=== PATIENT | female | born 1985 | race Caucasian/White ===

== ENCOUNTER → 2017-06-27 | Outpatient (CLI) | payer SELFPAY ==
--- NOTE | 2017-06-27 14:28 | RADIOLOGY REPORT (SQ) ---
EXAM DESCRIPTION: CHEST PA/LATERAL COMPLETED DATE/TIME: 06/27/2017 2:14 pm REASON FOR STUDY: CHEST PAIN, UNSPECIFIED COMPARISON: 11/05/2009 EXAM PARAMETERS: NUMBER OF VIEWS: two views TECHNIQUE: Digital Frontal and Lateral radiographic views of the chest acquired. RADIATION DOSE: NA LIMITATIONS: none FINDINGS: LUNGS AND PLEURA: No opacities, masses or pneumothorax. No pleural effusion. MEDIASTINUM AND HILAR STRUCTURES: No masses or contour abnormalities. HEART AND VASCULAR STRUCTURES: Heart normal size. No evidence for failure. BONES: No acute findings. HARDWARE: None in the chest. OTHER: No other significant finding. IMPRESSION: NO SIGNIFICANT RADIOGRAPHIC FINDING IN THE CHEST. TECHNICAL DOCUMENTATION: JOB ID: [id number] [employer]- All Rights Reserved Reading location - IP/workstation name: [email or web address]
[2017-06-27 15:08] LABS: ABSOLUTE EOSINOPHILS # (AUTO) 0.2 10^3/uL (0.0-0.6); ABSOLUTE LYMPHOCYTES (AUTO) 1.4 10^3/uL (0.5-4.7); ABSOLUTE MONOCYTES (AUTO) 0.4 10^3/uL (0.1-1.4); BASOPHILS % (AUTO) 0.5 % (0-2); HEMATOCRIT 36.5 % (36.0-47.0); HEMOGLOBIN 12.3 g/dL (12.0-15.5); LYMPHOCYTES % (AUTO) 36.3 % (13-45); MEAN CORPUSCULAR HEMOGLOBIN 30.8 pg (27.0-33.4); MEAN CORPUSCULAR HGB CONC 33.7 g/dL (32.0-36.0); MEAN CORPUSCULAR VOLUME 91 fl (80-97); MONOCYTES % (AUTO) 9.3 % (3-13); PLATELET COUNT 133 10^3/uL (150-450); RED BLOOD COUNT 3.99 10^6/uL (3.72-5.28); RED CELL DISTRIBUTION WIDTH 13.5 % (11.5-14.0); SEGMENTED NEUTROPHILS % (AUTO) 48.9 % (42-78); TOTAL CELLS COUNTED % (AUTO) 100 %
[2017-06-27 15:33] LABS: ALANINE AMINOTRANSFERASE 30 U/L (9-52); ALKALINE PHOSPHATASE 46 U/L (38-126); ANION GAP 5 (5-19); ASPARTATE AMINO TRANSFERASE 30 U/L (14-36); BILIRUBIN,TOTAL 0.6 mg/dL (0.2-1.3); BLOOD UREA NITROGEN 14 mg/dL (7-20); CALCIUM 9.4 mg/dL (8.4-10.2); CARBON DIOXIDE 30 mmol/L (22-30); CHLORIDE 103 mmol/L (98-107); GLUCOSE 83 mg/dL (75-110); POTASSIUM 4.3 mmol/L (3.6-5.0); SODIUM 138.1 mmol/L (137-145); TOTAL PROTEIN 6.2 g/dL (6.3-8.2)
== END ==
LOC: OD 13:27
PROVIDERS: ATTEND Physician Assistant
DX: R07.9 Chest pain, unspecified (principal)
CPT/HCPCS: 36415; 71046; 80053; 85025; 85379

== ENCOUNTER 2019-03-29 16:34 | Emergency (ER) | payer MEDICAID, OTHER ==
--- NOTE | 2019-03-29 17:06 | ER Document Report ---
ED Medical Screen (RME) - General Chief Complaint: Urinary Problem Stated Complaint: URGENCY,POSSIBLE BLOOD IN URINE Time Seen by Provider: 03/29/19 17:05 Primary Care Provider: PEDRO SNEED PA [Primary Care Provider] - Follow up as needed TRAVEL OUTSIDE OF THE [place] IN LAST 30 DAYS: No - HPI Notes: 03/29/19 17:06 Patient is a 33-year-old female who presents complaining of urinary burning, vaginal odor, and scant discharge. Patient states that she has noticed more symptoms over the past several days, but has had intermittent symptoms for a while. No fever or abdominal pain otherwise. I have treated and performed a rapid initial assessment of this patient. A comprehensive ED assessment and evaluation of the patient, analysis of test results and completion of medical decision making process will be conducted by additional ED providers. PHYSICAL EXAMINATION: GENERAL: Well-appearing, well-nourished and in no acute distress. A&Ox4. Answers questions appropriately. Abdomen: Limited exam in triage, grossly nontender. - Related Data Allergies/Adverse Reactions: No Known Allergies Allergy (Unverified 07/13/11 13:15) Past Medical History Past Surgical History: Reports: Hx Hysterectomy - Immunizations Hx Diphtheria, Pertussis, Tetanus Vaccination: Yes Physical Exam - Vital signs Vitals: Temp Pulse Resp BP Pulse Ox 97.8 F 79 16 106/66 97 03/29/19 16:40 03/29/19 16:40 03/29/19 16:40 03/29/19 16:40 03/29/19 16:40 Course - Vital Signs Vital signs: Temp Pulse Resp BP Pulse Ox 97.8 F 79 16 106/66 97 03/29/19 16:40 03/29/19 16:40 03/29/19 16:40 03/29/19 16:40 03/29/19 16:40 Doctor's Discharge - Discharge Referrals: PEDRO SNEED PA [Primary Care Provider] - Follow up as needed
[2019-03-29 17:56] LABS: APPEARANCE,URINE CLOUDY; BILIRUBIN,URINE NEGATIVE (NEGATIVE); COLOR,URINE YELLOW; GLUCOSE, URINE NEGATIVE (NEGATIVE); KETONES,URINE NEGATIVE (NEGATIVE); PROTEIN,URINE 30 mg/dL (NEGATIVE); URINE SPECIFIC GRAVITY 1.024; UROBILINOGEN,URINE NEGATIVE mg/dL (<2.0)
--- NOTE | 2019-03-29 18:02 | ER Document Report ---
HPI - HPI Patient complains to provider of: Dysuria vaginal odor Time Seen by Provider: 03/29/19 17:05 Onset: Other Pain Level: 4 Context: 33-year-old female presents emergency department with reports of urgency and lorenzo n after voiding that started yesterday. She complains of vaginal odor for close to a year. She reports she has been evaluated by her primary care provider and treated for bacterial vaginosis. She does have a history of chlamydia. She reports she is currently sexually active with one partner and they do not use protection. She denies fever vomiting diarrhea. Denies pain with void. Denies abdominal pain. Denies vaginal discharge. Denies vaginal bleeding. Associated Symptoms: None Exacerbated by: Denies Relieved by: Denies Similar symptoms previously: Yes Recently seen / treated by doctor: No - REPRODUCTIVE Reproductive: DENIES: : Past Medical History - General Information source: Patient Last Menstrual Period: hyst - Social History Smoking Status: Unknown if Ever Smoked Cigarette use (# per day): No Frequency of alcohol use: Occasional Drug Abuse: None Occupation: Restaurant Lives with: Friend Family History: None Patient has suicidal ideation: No Patient has homicidal ideation: No Renal/ Medical History: Reports: Other - Chlamydia Past Surgical History: Reports: Hx Breast Surgery - Augmentation, Hx Hysterectomy - Immunizations Hx Diphtheria, Pertussis, Tetanus Vaccination: Yes Vertical Provider Document - CONSTITUTIONAL Agree With Documented VS: Yes Exam Limitations: No Limitations General Appearance: WD/WN, No Apparent Distress - INFECTION CONTROL TRAVEL OUTSIDE OF THE [place] IN LAST 30 DAYS: No - HEENT HEENT: Atraumatic, Normocephalic. negative: Conjuctival Injection - NECK Neck: Supple - RESPIRATORY Respiratory: No Respiratory Distress - CARDIOVASCULAR Cardiovascular: Regular Rate - GI/ABDOMEN Gastrointestinal: Abdomen Soft, Abdomen Non-Tender - REPRODUCTIVE Female Genitalia: Normal Inspection - MUSCULOSKELETAL/EXTREMETIES Musculoskeletal/Extremeties: HOLA ISAACS - NEURO Level of Consciousness: Awake, Alert, Appropriate Motor/Sensory: No Motor Deficit - DERM Integumentary: Warm, Dry Course - Re-evaluation Re-evalutation: 03/29/19 18:01 33-year-old female that presents with complaints of pain at the end of her stream and urgency. She also complains of vaginal odor. Has been treated for BV and chlamydia in the past. Pelvic was completed. Patient was instructed on 3-hour wait for results of STD. She reports she would rather be called if the STD cultures are positive. She reports she does not think she has an STD. - Vital Signs Vital signs: Temp Pulse Resp BP Pulse Ox 97.8 F 79 16 106/66 97 03/29/19 16:40 03/29/19 16:40 03/29/19 16:40 03/29/19 16:40 03/29/19 16:40 Procedures - Pelvic Exam Pelvic exam Time completed: 17:59 Cultures obtained: Yes Wet prep obtained: Yes Herpes culture obtained: No POC sent to lab: No Foreign body removed: No Bimanual exam performed: Yes Witnessed by: ramiro menon Discharge - Discharge Clinical Impression: Vaginal odor, Bacterial vaginosis Urinary tract infection Qualifiers: Urinary tract infection type: site unspecified Hematuria presence: with he maturia Qualified Code(s): N39.0 - Urinary tract infection, site not specified Condition: Stable Disposition: HOME, SELF-CARE Instructions: Metronidazole ([facility]), Nitrofurantoin ([facility]), [facility], Urinary Tract Infection ([facility]), Vaginosis, Bacterial ([facility]) Additional Instructions: *You have been evaluated for pain while voiding, UTI, vaginal odor, bacterial vaginosis *Your STD cultures are pending. You may contact the culture nurse at [phone] for your results Tuesday through Tuesday 8 AM to 4 PM. If your results are positive for an STD you will be contacted to return for treatment. Avoid sexual intercourse until you receive your STD results. *Take medication as prescribed for your UTI and the Bacterial vaginosis (DO NOT DRINK ALCOHOL WHILE TAKING FLAGYL) *Push fluids *Follow up with your primary care provider in 1 week for recheck *Return to ED for worsening condition, changes, needs Prescriptions: Metronidazole [Flagyl 500 mg Tablet] 500 mg PO BID #14 tablet Nitrofurantoin/Nitrofuran Mac [Macrobid 100 mg Capsule] 100 mg PO BID #20 capsule Referrals: PEDRO SNEED PA [Primary Care Provider] - Follow up in 1 week
[2019-03-29 18:21] LABS: BACTERIA (WET MOUNT) 4+ BACTERIA SEEN; EPITHELIALS (WET MOUNT) 4+ EPITHELIALS SEEN; T.VAGINALIS (WET MOUNT) NO TRICHOMONAS SEEN; WBCS (WET MOUNT) 2+ WBCS SEEN; YEAST (WET MOUNT) NO YEAST SEEN
[2019-03-29 19:05] VITALS: BP 104/62
[2019-03-29 19:45] LABS: CHLAM PCR NOT DETECTED (NOT DETECT)
== END 2019-03-29 19:05 | disposition home or self-care (01) ==
LOC: ER 16:34
DX: N76.0 Acute vaginitis (principal); B96.89 Other specified bacterial agents as the cause of diseases classified elsewhere; N39.0 Urinary tract infection, site not specified; R31.9 Hematuria, unspecified
CPT/HCPCS: 81001; 81025; 87086; 87088; 87186; 87210; 87491; 87591; 99283

== ENCOUNTER 2019-05-15 23:36 | Emergency (ER) | payer SELFPAY ==
[2019-05-16 00:14] VITALS: BP 122/78
== END 2019-05-16 03:58 | disposition left against medical advice (07) ==
LOC: ER 23:36
DX: Z53.21 Procedure and treatment not carried out due to patient leaving prior to being seen by health care provider (principal)